=== PATIENT | male | born 1950 | race Caucasian/White ===

== ENCOUNTER 2016-07-15 12:17 | Emergency (ER) | payer MEDICAID ==
[~2016-07-15] VITALS: Ht 167.6 cm; Wt 73.0 kg
[~2016-07-15 12:17] MED LIST: ATOR40TA70 PO; BENA20TA3 PO; BUDE6HFA INH; CLON0.1T PO; GABA-290 PO; LISI-604 PO; LORA0.5T2 PO; METF-246 PO
[2016-07-15] MEDS ORDERED: ALBUTEROL (0.083%) 2.5MG/3ML NEB HHN STA (13:26)
[2016-07-15] MEDS ORDERED: METHYLPREDNISOLONE SOD SUCC 125 MG/2 ML VIAL IV ONE (13:45)
[2016-07-15 14:13] LABS: BASOPHILS % 0.7 % (0.0-2.0); EOSINOPHILS % 5.5 % (0.0-5.0); HEMATOCRIT. 37.9 % (42.0-52.0); HEMOGLOBIN. 12.3 g/dL (14.0-18.0); LYMPHOCYTES % 17.3 % (20.0-50.0); MEAN CORPUSCULAR HEMOGLOBIN 27.1 pg (28.0-32.0); MEAN CORPUSCULAR HGB CONC 32.5 g/dL (31.0-37.0); MEAN CORPUSCULAR VOLUME 83.3 fL (80.0-94.0); MEAN PLATELET VOLUME 8.2 fl (7.4-10.4); MONOCYTES % 2.7 % (2.0-8.0); NEUTROPHILS % 73.8 % (40.0-76.0); PLATELET 212 x1000/uL (130-400); RED BLOOD CELL COUNT 4.55 mill/uL (4.7-6.1); RED CELL DISTRIBUTION WIDTH 14.8 % (11.6-14.6)
[2016-07-15 14:16] LABS: INR 1.1; PROTHROMBIN TIME 11.3 sec
[2016-07-15 14:22] LABS: ALANINE AMINOTRANSFERASE 27 IU/L (13-61); ALBUMIN 3.6 g/dL (3.4-5.0); ANION GAP 12; CALCIUM 8.9 mg/dL (8.5-10.1); CARBON DIOXIDE 29 mEq/L (21-32); CHLORIDE 106 mEq/L (98-107); ETHANOL BLOOD < 10 mg/dL; INDEX HEMOLYSI 1 (1-3); INDEX ICTERIC 1 (1-4); INDEX LIPEMIC 1 (1-3); LIPASE 507 IU/L (73-393); UREA NITROGEN BLOOD 13 mg/dL (7-21); eGFR > 60 mL/min (>60)
[2016-07-15 16:18] VITALS: BP 122/68
== END 2016-07-15 16:22 | disposition home or self-care (01) ==
LOC: ER 14:25
DX: J45.901 Unspecified asthma with (acute) exacerbation (principal); R10.13 Epigastric pain; E11.9 Type 2 diabetes mellitus without complications; I10 Essential (primary) hypertension; Z87.891 Personal history of nicotine dependence; Z86.73 Personal history of transient ischemic attack (TIA), and cerebral infarction without residual deficits; Z79.84 Long term (current) use of oral hypoglycemic drugs; Z79.899 Other long term (current) drug therapy
CPT/HCPCS: 36415; 71010; 80053; 83690; 85025; 85610; 94640; 96374; 99285; G0482; J2930; J7611; Z7610

== ENCOUNTER 2017-03-04 15:42 | Emergency (ER) | payer MEDICAID ==
[~2017-03-04] VITALS: Ht 167.6 cm; Wt 69.0 kg
[~2017-03-04 15:42] MED LIST changes: -METF-246 PO; +METF10002 PO
[2017-03-04 17:32] VITALS: BP 153/87
== END 2017-03-04 17:57 | disposition home or self-care (01) ==
LOC: ER 16:06
DX: J45.909 Unspecified asthma, uncomplicated (principal); M62.838 Other muscle spasm; E11.40 Type 2 diabetes mellitus with diabetic neuropathy, unspecified; I11.0 Hypertensive heart disease with heart failure; I50.9 Heart failure, unspecified
CPT/HCPCS: 99283